=== PATIENT | male | born 1985 | race Two or more races ===

== ENCOUNTER 2022-01-16 04:16 | Emergency (ER) | payer SELFPAY ==
[2022-01-16] MEDS ORDERED: Lidocaine 1% 5 ML VIAL INJECT ONE (04:52)
== END 2022-01-16 05:29 | disposition home or self-care (01) ==
LOC: JP.ED 04:16
DX: K61.0 Anal abscess (principal)
CPT/HCPCS: 30901; 46050; 99282-25; 99283